=== PATIENT | male | born 1945 | race Caucasian/White ===

== ENCOUNTER 2023-11-01 09:12 | Inpatient (IN) | payer MEDICARE, OTHER ==
[~2023-11-01] VITALS: Ht 188 cm; Wt 92.8 kg
[2023-11-01] VITALS (31 sets, daily range): BP systolic 93–141; BP diastolic 38–98
[~2023-11-01 09:12] MED LIST: ABC PLUS TABLE1 EACH PO; Co Q-10300 MG PO; OMEGA ESSE1400 MG/5 PO; TUMERIC CURCUMIN PO; VITAMIN D32000 UNIT PO
[2023-11-01 09:45] LABS: Calcium, Ionized (POC) 1.14 mmol/L (1.10-1.46); Chloride (POC) 105 mmol/L (98-108); Creatinine (POC) 1.4 mg/dL (0.8-1.3); Glucose (ISTAT POC) 258 mg/dL (70-99); Hemoglobin (POC) 15.6 g/dL (13.5-17.5); Potassium (POC) 3.2 mmol/L (3.5-5.5); Sodium (POC) 141 mmol/L (135-148); Total CO2 (POC) 21 mmol/L (21-32)
[2023-11-01 09:47] LABS: Base Excess Venous -17.2 mmol/L; Bicarbonate Venous 10.9 mmol/L (24.0-30.0); PCO2 Venous 77.2 mmHg (38-42); pH Blood Venous 6.91 (7.34-7.37)
[2023-11-01 10:01] LABS: PCO2 Venous 50.8 mmHg (38-42); pH Blood Venous 7.18 (7.34-7.37)
[2023-11-01 10:01] LABS: BASOPHILS ABSOLUTE AUTO 0.12 K/mm3 (0.00-0.23); BASOPHILS PERCENT AUTO 1 % (0-2); EOSINOPHILS ABSOLUTE AUTO 0.17 K/mm3 (0.00-0.68); EOSINOPHILS PERCENT AUTO 2 % (0-6); Hematocrit 46.4 % (37.0-53.0); Hemoglobin 14.7 g/dL (13.5-17.5); Mean Corpuscular HGB 31.8 pg (26.0-34.0); Mean Corpuscular HGB Conc 31.7 g/dL (31.5-36.5); Mean Corpuscular Volume 100 fL (80-100); Mean Platelet Volume 11.3 fL (9.1-12.4); Platelet Count 218 K/mm3 (150-400); RDW Coefficient Variation 12.4 % (11.7-14.2); RDW Standard Deviation 46.3 fL (35.1-46.3); Red Blood Cell Count 4.62 M/mm3 (4.30-5.90); White Blood Cell Count 11.42 K/mm3 (4.00-11.30)
[2023-11-01 10:03] LABS: IMMATURE GRAN ABSOLUTE AUTO 0.21 K/mm3 (0.00-0.10); IMMATURE GRAN PERCENT AUTO 2 % (0-1); LYMPHOCYTES ABSOLUTE AUTO 6.21 K/mm3 (0.84-5.20); LYMPHOCYTES PERCENT AUTO 54 % (21-46); MONOCYTES ABSOLUTE AUTO 0.79 K/mm3 (0.16-1.47); MONOCYTES PERCENT AUTO 7 % (4-13); NEUTROPHILS ABSOLUTE AUTO 3.92 K/mm3 (1.96-9.15); NEUTROPHILS PERCENT AUTO 34 % (41-73)
[2023-11-01 10:03] LABS: Base Excess Venous -9.7 mmol/L; Bicarbonate Venous 16.8 mmol/L (24.0-30.0)
[2023-11-01 10:17] LABS: Albumin, Blood 3.1 g/dL (3.4-5.0); Bilirubin, Total 0.9 mg/dL (0.1-1.0); Bun/Creatinine Ratio 12.4 (12.0-20.0); Calcium, Blood 8.7 mg/dL (8.5-10.1); Creatinine, Blood 1.29 mg/dL (0.60-1.20); Globulin, Blood 3.1 g/dL (2.2-4.0); Magnesium, Blood 2.3 mg/dL (1.6-2.4); Potassium, Blood 3.5 mmol/L (3.5-5.5); Total Protein, Blood 6.2 g/dL (6.4-8.2)
[2023-11-01 10:19] LABS: International Normalized Ratio 1.09; Prothrombin Time Results 11.4 Sec (9.7-11.5)
[2023-11-01 10:25] LABS: Calcium, Ionized (POC) 1.12 mmol/L (1.10-1.46); Chloride (POC) 106 mmol/L (98-108); Creatinine (POC) 1.4 mg/dL (0.8-1.3); Glucose (ISTAT POC) 275 mg/dL (70-99); Hemoglobin (POC) 13.9 g/dL (13.5-17.5); Potassium (POC) 3.8 mmol/L (3.5-5.5); Sodium (POC) 139 mmol/L (135-148); Total CO2 (POC) 21 mmol/L (21-32)
--- NOTE | 2023-11-01 11:50 | NUR ---
ARRIVAL TO ICU PT BROUGHT TO ICU 5 AT THIS TIME. HE IS ON THE VENT WITH SETTINGS AC/VC 16/480/5/100%. PT IS HAVING MYOCLONIC MOVEMENT. PT TENSES, UPPER EXTREMITIES WITHDRAW UPWARD WITH INWARD ROTATION AND FEET MOVE UPWARD. APPEARS TO BE SPONTANEOUS AND TO STIMULI. PUPILS EQUAL, FIXED. ABSENT CORNEAL REFLEX. MINIMAL COUGH/GAG. NGT TO LIS, SMALL AMOUNT OF OUTPUT. BOWEL TONES HYPOACTIVE. TEMP AVILA PATENT AND DRAINING YELLOW URINE TO GRAVITY. CORE TEMP 96.9. AT BEDSIDE, UPDATED BY ROD MILL OPERATOR.
--- NOTE | 2023-11-01 12:03 | NUR ---
"Spiritual Care | Nurse request Pt. is in ED and is unresponsive. Pt. came to the ED after having fallen, and a cardiac event. This electrician assistant provided support to the Pts. spouse. Prayer and pastoral support is given. Spouse verbalizes that Pt. would not want to be intubated if his condition was irreversable. Stay with spouse, and brought her to the chapel where she could pray. Spouse verbalized gratitude for he spiritual care visit. After Pt. transferred to the ICU, Pt. is in decline and Dr. Cid requested infor to contact spouse."
--- NOTE | 2023-11-01 15:00 | NUR ---
UPDATE PATHOLOGY TECHNOLOGIST NOTIFIED OF VS. HR MAINTAINING 40S-50S, MAP 40S-50S. ORDERS RECEIVED. PROPOFOL DECREASED TO 10MCG/KG/MIN.
--- NOTE | 2023-11-01 15:00 | NUR ---
EEG ARMORER TECHNICIAN AT BEDSIDE.
[2023-11-01 17:09] LABS: Source, Urine Foley catheter
[2023-11-01 17:13] LABS: Appearance, Urine Cloudy (Clear); Bilirubin, Urine Neg (Neg); Blood, Urine 4+ (Neg); Color, Urine Yellow (P-Yellow); Glucose Qualitative, Urine Neg (Neg); Ketones, Urine 1+ (Neg); Leukocyte Esterase, Urine 2+ (Neg); Nitrite, Urine Neg (Neg); Protein, Urine 2+ (Neg); Specific Gravity, Urine 1.025 (1.003-1.022); Urobilinogen, Urine NORM (Normal)
[2023-11-01 17:22] LABS: Amorphous Mod (0-Heavy); Bacteria Few /hpf; Hyaline Casts 0-2 /lpf (0-2); Squamous Epithelial Cells Rare /hpf (Few); White Blood Cells, Urine 25-50 /hpf (0-5)
[2023-11-01 17:23] LABS: Renal Epithelial Rare /hpf (0-Rare)
--- NOTE | 2023-11-01 18:32 | NUR ---
SHIFT SUMMARY PT RECEIVING PROPOFOL 10MCG/KG/MIN AND NS 125ML/HR. HE CONTINUES TO HAVE MYOCLONIC MOVEMENT WITH AND WITHOUT STIMULI. PUPILS REMAIN FIXED, NEGATIVE DOLLS EYES, ABSENT CORNEAL REFLEX. MINIMAL COUGH/GAG. HE IS ON THE VENT WITH SETTINGS AC/VC 16/480/5/60%. MODERATE AMOUNT OF WHITE/RED ETT SECRETIONS. PT APPEARS TO HAVE BIT TONGUE, SMALL AMOUNT OF BLEEDING DURING ORAL CARE. NGT TO LIS. BOWEL TONES HYPOACTIVE, ABDOMEN SOFT. AVILA PATENT AND DRAINING CLOUDY YELLOW URINE TO GRAVITY.
--- NOTE | 2023-11-01 18:37 | NUR ---
CONTACT PT'S MARTI CARYN TO CALL HOME PHONE FIRST: [phone] THEN CELL PHONE IF NEEDED.
--- NOTE | 2023-11-01 22:47 | NUR ---
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
[2023-11-02] VITALS (44 sets, daily range): BP systolic 112–178; BP diastolic 55–107
[2023-11-02 04:01] LABS: Hematocrit 30.5 % (37.0-53.0); Mean Corpuscular HGB 31.8 pg (26.0-34.0); Mean Corpuscular HGB Conc 32.8 g/dL (31.5-36.5); Mean Corpuscular Volume 97 fL (80-100); Mean Platelet Volume 10.4 fL (9.1-12.4); Platelet Count 143 K/mm3 (150-400); RDW Coefficient Variation 12.8 % (11.7-14.2); RDW Standard Deviation 45.5 fL (35.1-46.3); Red Blood Cell Count 3.14 M/mm3 (4.30-5.90)
[2023-11-02 04:46] LABS: Albumin, Blood 1.6 g/dL (3.4-5.0); Anion Gap 7 mmol/L (6-16); Blood Urea Nitrogen 14 mg/dL (8-24); Bun/Creatinine Ratio 19.8 (12.0-20.0); CO2, Blood 16 mmol/L (21-32); Chloride, Blood 128 mmol/L (98-108); Creatinine, Blood 0.71 mg/dL (0.60-1.20); Glomerular Filtration Rate 95 (60-); Glucose, Blood 138 mg/dL (70-99); Phosphorus, Blood 0.7 mg/dL (2.5-4.9); Potassium, Blood 2.7 mmol/L (3.5-5.5); Sodium, Blood 151 mmol/L (136-145)
[2023-11-02 04:48] LABS: Calcium, Blood <5.0 mg/dL (8.5-10.1)
--- NOTE | 2023-11-02 06:26 | NUR ---
SHIFT SUMMARY PATIENT REMAINED ONLY RESPONSIVE TO PAINFUL STIMULI IN NAIL BEDS, CORNEAL REFLEXES INTACT, NO S/SX OF PAIN, PATIENT UNABLE TO FOLLOW COMMANDS. STOPPED PROPOFOL, VENT SETTINGS PRESENTLY A/C VOL. CONTROL, 40% FIO2, PEEP 5, RR 16, TV 480. NG REMAINED TO SUCTION, HELD FOR TYLENOL ADMINISTERED. LABS NOTED AND CALLED TO MD, NEW ORDERS NOTED AND IV'S INFUSING, PUSHES GIVEN. MINIMAL OUTPUT FROM AVILA OVERNIGHT, CLOUDY, CONCENTRATED, YELLOW. NO BM. SKIN INTACT. VS STABLE OTHERWISE. REPORT PENDING.
--- NOTE | 2023-11-02 08:50 | NUR ---
Herman of Care: Care assumed at 0700hr. Patient intubated and currently on no sedation. Patient withdraws extremities to painful stimuli, but not following any commands. Pupils equal and reactive, but fixed upward gaze. Positive cough reflex, minimal gag reflex, and negative plantar reflex. Occasional myoclonic jerking movements with decorticate posturing. Vent to AC- 16/480/5/35, VSS. Berrios cath patent and intact, draining cloudy yellow urine. Peripheral IV's x3 patent and intact. Will continue to monitor.
--- NOTE | 2023-11-02 10:10 | NUR ---
Update/Plan: Call received from patient's Bianca. Bianca inquired about the results of the EEG. This RN discussed results, including evidence of severe bilateral cerebral dysfunction, while also emphasizing that a physician would be the qualified personal to interpret the EEG results. Bianca then discussed the details of the patient's AD, and that he would not want to receive any life sustaining treatment. This combined with the patient's poor prognosis (per Dr. Cid yesterday), Bianca decided to transition the patient to comfort measures only. This RN then relayed this information to Dr. Santiago, who agreed with the change in plan of care. Call placed at this time to [facility] for final approval to extubated to comfort measures. Awaiting return phone call from [facility] at this time.
--- NOTE | 2023-11-02 10:28 | NUR ---
"Spiritual Care Support | Comfort care / home decision Attending nurse Marvel contacted Pts. spouse and reports the spouse is choosing comfort care. The spouse verbalizes that she does not intend to visit the Pt. and allowed the hospital to choose home. [facility] is chosen based on proximity to the family's home."
--- NOTE | 2023-11-02 13:27 | NUR ---
Extubation/Comfort Care: Patient extubated to comfort care at 1204hr. Patient pre-medicated with 2mg Ativan prior to extubation then 5mg Morphine following extubation. Patient appears calm and comfortable, remains unresponsive. Call placed to patient's (per her request) to notify her of transition to comfort measures. At approx 1320hr, patient's respirations significantly increased with a large amount of audible secretions. Prn Ativan and Morphine repeated. Patient appears comfortable but no effect noted on respirations. NT suctioning then performed (x1 pass) with good effect. Large amount of thick secretions removed. Respirations now slowed and audible congestion significantly decreased.
--- NOTE | 2023-11-02 15:03 | NUR ---
VISITED WITH ROYAL. HE WAS UNRESPONSIVE, I SAT AND SPOKE WITH HIM FOR A WHILE AND PROVIDED A THERAPUTIC VISIT. I DISCUSSED PATIENT WITH THE BEDSIDE RN. HE UPDATED ME ON THE CONVERSATION HE HAD WITH THE EARLIER TODAY. ROYAL APPEARED TO BE HAVING SOME INCREASED RESPIRATIONS, BEDSIDE RN WILL TREAT.
--- NOTE | 2023-11-02 17:48 | NUR ---
Shift Summary: No significant changes throughout remainder of shift, see "extubation" note. Prn morphine and ativan effective to keep patient comfortable. No s/s of pain. Occasional NT suction required to clear audible secretions. Patient appears to tolerate NT suction without much discomfort, while then appearing more comfortable (eased respirations) after clearing secretions. Will continue to monitor until report to NOC shift RN.
--- NOTE | 2023-11-02 19:49 | NUR ---
INITIAL NOTE REPORT RECEIVED, PATIENT EXTUBATED TO COMFORT, HAD SIGNIFICANT WET RATTLE NOTED AT CHANGE OF SHIFT AND AFTER NASAL SUCTION, LESS WET SOUNDING AND APPEARED MORE COMFORTABLE, HOWEVER PATIENT HAS NO RESPONSE NOW TO PAIN, NO CORNEAL REFLEX TODAY. RESPIRATIONS EVEN BUT LABORED AND RATE AROUND 30, NO GRIMACING IN FACE, MONITORING FOR COMFORT. ORDERS NOTED.
--- NOTE | 2023-11-02 22:12 | NUR ---
TRANSFER NOTE NO ACUTE CHANGES, GIVEN ROXANOL AND ATROPINE EARLIER FOR SECRETIONS, DISCOMFORT R/T END OF LIFE/COMFORT MEASURES, REMAINS IN SAME CONDITION, REPORT CALLED TO ENRIQUETA, RN AND PATIENT TRANSFERRED AT PRESENT TIME TO ROOM 304, NO CONCERNS FROM RECEIVING RN AT TIME OF TRANSFER.
--- NOTE | 2023-11-02 22:54 | NUR ---
PT ARRIVED TO FLOOR BY BED, PT TRANSFERD TO BED IN ROOM WITH 4 PERSON ASSIST AND SLIDER SHEET. PT IS NON RESPOSIVE. PT HAS [place] SOUNDS WITH RESPERAIONS AND IS BREATHING ABOUT 28 RESPERATIONS. PT HAS MOTTLING FROM TOES TO KNEES. FEET ARE VERY COLD. PT POSITIONED WITH PILLOWS FOR COMFORT GIVEN ORAL CARES AND MEDICATED FOR PAIN AND GIVEN ATROPINE FOR SECREATIONS.
--- NOTE | 2023-11-03 01:22 | NUR ---
0015 2 NURSE CONFERMATION PT HAD NO HEART BEAT NO RESPERATIONS. CONTACTED , SHE WILL SUPERVISOR [employer]ENN[employer] PT BELONGINGS LATER TODAY AND WILL NOT BE COMMING IN TO SEE PT AT HOSPITAL. [facility] WILL BE THE MORTUARY PT WILL GO TO.
== END 2023-11-03 00:15 | DRG 308 ==
LOC: ER 09:12 → EDBD 09:12 → ICUE 11:22 → MEDS 11-02 22:14
PROVIDERS: Student in an Organized Health Care Education/Training Program; ADMIT Internal Medicine
PROC: 5A12012 Performance of Cardiac Output, Single, Manual (ICD-10-PCS; principal; 2023-11-01)
PROC: 5A1935Z Respiratory Ventilation, Less than 24 Consecutive Hours (ICD-10-PCS; 2023-11-01)
PROC: 0BH17EZ Insertion of Endotracheal Airway into Trachea, Via Natural or Artificial Opening (ICD-10-PCS; 2023-11-01)
PROC: 0DH67UZ Insertion of Feeding Device into Stomach, Via Natural or Artificial Opening (ICD-10-PCS; 2023-11-01)
PROC: 0T9B70Z Drainage of Bladder with Drainage Device, Via Natural or Artificial Opening (ICD-10-PCS; 2023-11-01)
PROC: 30233J1 Transfusion of Nonautologous Serum Albumin into Peripheral Vein, Percutaneous Approach (ICD-10-PCS; 2023-11-01)
PROC: 5A2204Z Restoration of Cardiac Rhythm, Single (ICD-10-PCS; 2023-11-01)
PROC: 3E033XZ Introduction of Vasopressor into Peripheral Vein, Percutaneous Approach (ICD-10-PCS; 2023-11-01)
DX: I49.01 Ventricular fibrillation (principal); J96.00 Acute respiratory failure, unspecified whether with hypoxia or hypercapnia; E87.4 Mixed disorder of acid-base balance; G93.1 Anoxic brain damage, not elsewhere classified; N17.9 Acute kidney failure, unspecified; Z66 Do not resuscitate; Z51.5 Encounter for palliative care; I46.2 Cardiac arrest due to underlying cardiac condition; E87.6 Hypokalemia; R73.9 Hyperglycemia, unspecified; Z87.442 Personal history of urinary calculi
CPT/HCPCS: 31500; 36415; 51702; 70450; 71045; 80047; 80053; 80069; 81001; 82803; 82947; 83735; 83880; 84484; 85014; 85025; 85027; 85520; 85610; 85730; 87086; 92950; 92960; 93306; 94002; 94003; 95819; 96365-59; 99285-25; A9270; C9113; J0171; J0461; J0612; J1644; J1650; J1953; J2060; J2270; J2704; J3475; J3480; J7030; J7050; J7060; J7070; P9047